=== PATIENT | female | born 1960 | race Caucasian/White ===

== ENCOUNTER → 2017-03-21 | Outpatient (CLI) | payer BC ==
--- NOTE | 2017-03-21 10:15 | US ---
EXAMINATION TYPE: US abdomen complete DATE OF EXAM: 03/21/2017 COMPARISON: NONE CLINICAL HISTORY: Upper abdominal pain R10.10. EXAM MEASUREMENTS: Liver Length: 17.1 cm Gallbladder Wall: 0.3 cm CBD: 0.5 cm Spleen: 8.9 cm Right Kidney: 9.4 x 4.6 x 5.6 cm Left Kidney: 9.4 x 4.4 x 5.1 cm Pancreas: Obscured by bowel gas Liver: Increased attenuation Gallbladder: No stones seen Evidence for sonographic Miller's sign: CBD: wnl Spleen: wnl Right Kidney: No hydronephrosis or masses seen Left Kidney: 4.8 x 4.0 x 4.3 cm cyst anterior aspect of left kidney Upper IVC: wnl Abd Aorta: wnl IMPRESSION: 1. Moderate fatty infiltration liver. Slight hepatomegaly. 2. Left renal cyst
== END | disposition home or self-care (01) ==
LOC: RADUSWWP 07:35
PROVIDERS: ATTEND Family Medicine
DX: N28.1 Cyst of kidney, acquired (principal); K76.0 Fatty (change of) liver, not elsewhere classified; R16.0 Hepatomegaly, not elsewhere classified
CPT/HCPCS: 76700

== ENCOUNTER → 2021-07-26 | Outpatient (CLI) | payer MEDICAID ==
--- NOTE | 2021-08-04 09:26 | MM ---
Reason for exam: screening (asymptomatic). Last mammogram was performed 3 years and 10 months ago. History: Patient is postmenopausal and is nulliparous. Family history of breast cancer in aunt at age 70. Physical Findings: A clinical breast exam by your physician is recommended on an annual basis and results should be correlated with mammographic findings. MG 3D Screening Mammo W/Cad Bilateral CC and MLO view(s) were taken. Prior study comparison: October 04, 2017, mammogram, performed at [facility]. December 27, 2015, mammogram, performed at [facility]. There are scattered fibroglandular densities. There is chronic nodularity bilaterally. ASSESSMENT: Incomplete: need additional imaging evaluation, BI-RAD 0 RECOMMENDATION: Special view mammogram of the right breast. If lesion persists on supplemental views, image directed ultrasound is recommended. [facility] will attempt to contact patient to return for supplemental views and ultrasound if indicated.
== END | disposition home or self-care (01) ==
LOC: RADMAMWWP 13:15
PROVIDERS: ATTEND Family Medicine
DX: Z12.31 Encounter for screening mammogram for malignant neoplasm of breast (principal); Z80.3 Family history of malignant neoplasm of breast; Z78.0 Asymptomatic menopausal state
CPT/HCPCS: 77063; 77067

== ENCOUNTER → 2021-08-08 | Outpatient (CLI) | payer MEDICAID ==
--- NOTE | 2021-08-08 09:08 | MM ---
Reason for exam: additional evaluation requested from abnormal screening. Last mammogram was performed less than 1 month ago. History: Patient is postmenopausal and is nulliparous. Family history of breast cancer in aunt at age 70. Physical Findings: Nurse did not find any significant physical abnormalities on exam. MG 3D Follow Up No Charge RT CC and MLO view(s) were taken of the right breast. Prior study comparison: October 04, 2017, mammogram, performed at [facility]. December 27, 2015, mammogram, performed at [facility]. There are scattered fibroglandular densities. There is chronic nodularity bilaterally. These results were verbally communicated with the patient and result sheet given to the patient on 08/08/21. ASSESSMENT: Benign, BI-RAD 2 RECOMMENDATION: Return to routine screening mammogram schedule for both breasts.
== END | disposition home or self-care (01) ==
LOC: RADMAMWWP 07:32
PROVIDERS: ATTEND Family Medicine
DX: Z53.9 Procedure and treatment not carried out, unspecified reason (principal)

== ENCOUNTER → 2023-09-04 | Outpatient (CLI) | payer MEDICAID ==
--- NOTE | 2023-09-05 08:42 | MM ---
Reason for Exam: Screening (asymptomatic). Last screening mammogram was performed 12 month(s) ago. Patient History: Menarche at age 11. Patient has no children. Postmenopausal. Maternal aunt had breast cancer, age 70. Risk Values: Mikki 5 year model risk: 1.7%. NCI Lifetime model risk: 7.4%. Prior Study Comparison: 07/26/2021 Bilateral Screening Mammogram, [facility]. 08/08/2021 Right Diagnostic Mammogram, [facility]. 09/01/2022 Bilateral MG screening mammo w CAD, [facility]. Tissue Density: There are scattered fibroglandular densities. Findings: Analyzed By CAD. There is no suspicious group of microcalcifications or new suspicious mass in either breast. Stable chronic nodularity. Overall Assessment: Benign, BI-RAD 2 Management: Screening Mammogram of both breasts in 1 year. . Patient should continue monthly self-breast exams. A clinical breast exam by your physician is recommended on an annual basis. This exam should not preclude additional follow-up of suspicious palpable abnormalities. Note on Mikki scores and lifetime risk: 1. A Mikki score greater than 3% is considered moderate risk. If this is the case, consider specialist referral to assess eligibility for a risk reducing agent. 2. If overall lifetime risk for the development of breast cancer is 20% or higher, the patient may qualify for future screening with alternating mammogram and breast MRI. Electronically signed and approved by: Ashkan Carpenter M.D. Radiologis
== END | disposition home or self-care (01) ==
LOC: RADMAMWWP 10:28
PROVIDERS: ATTEND Family Medicine
DX: Z12.31 Encounter for screening mammogram for malignant neoplasm of breast (principal); Z78.0 Asymptomatic menopausal state; Z80.3 Family history of malignant neoplasm of breast
CPT/HCPCS: 77063; 77067

== ENCOUNTER 2024-03-31 16:23 | Emergency (ER) | payer MEDICAID ==
[2024-03-31 16:33] VITALS: PULSE 80; RESP 18; TEMP 98.4
--- NOTE | 2024-03-31 17:02 | ED ---
Fall HPI - General Chief Complaint: Fall Stated Complaint: fall, L foot pain Time Seen by Provider: 03/31/24 16:36 Source: patient, EMS, RN notes reviewed Mode of arrival: EMS - History of Present Illness Initial Comments: 63-year-old female with reported history of "left foot drop "presents emergency department via EMS for chief complaint of fall and left foot pain. Patient st ates that she was at home attempting to use a commode where her foot gave way and she fell forward injuring her left foot. Patient denies hitting her head or loss conscious at time of the injury. Patient has pain over the medial left foot. Patient states that she is being evaluated outpatient for pain of the left foot over the past 6 months and there have been no formal diagnoses made. denies blood thinner use. no other acute complaints at this time. - Related Data Home Medications Medication Instructions Recorded Confirmed Omeprazole [PriLOSEC] 20 mg PO HS 07/14/14 07/20/14 Propranolol HCl [Inderal Xl] 80 mg PO HS 07/14/14 07/20/14 Allergies Allergy/AdvReac Type Severity Reaction Status Date / Time cephalexin monohydrate Allergy Dyspnea Verified 03/31/24 16:34 [From Keflex] Penicillins Allergy Dyspnea Verified 03/31/24 16:34 Sulfa (Sulfonamide Allergy Rash/Hives Verified 03/31/24 16:34 Antibiotics) Review of Systems ROS Statement: Those systems with pertinent positive or pertinent negative responses have been documented in the HPI. ROS Other: All systems not noted in ROS Statement are negative. Past Medical History Past Medical History: GERD/Reflux Additional Past Medical History / Comment(s): STATES HX OF TACHYCARDIA History of Any Multi-Drug Resistant Organisms: None Reported Additional Past Surgical History / Comment(s): SX TO REMOVE PILONIAL CYST, COLONOSCOPY Additional Past Anesthesia/Blood Transfusion Reaction / Comment(s): STATES DID NOT GO TO SLEEP WITH SPINAL BLOCK AND TWILIGHT SEDATION Past Psychological History: No Psychological Hx Reported Past Alcohol Use History: None Reported Past Drug Use History: None Reported General Exam Limitations: no limitations General appearance: alert, in no apparent distress Head exam: Present: atraumatic, normocephalic, normal inspection Neck exam: Present: normal inspection. Absent: tenderness, meningismus, lymphadenopathy Respiratory exam: Present: normal lung sounds bilaterally. Absent: respiratory distress, wheezes, rales, rhonchi, stridor Cardiovascular Exam: Present: regular rate, normal rhythm, normal heart sounds. Absent: systolic murmur, diastolic murmur, rubs, gallop, clicks GI/Abdominal exam: Present: soft, normal bowel sounds. Absent: distended, tenderness, guarding, rebound, rigid Left Foot/Toe exam: Present: normal inspection, tenderness (medial forefoot over first metatarsal). Absent: full ROM, swelling, abrasion, laceration, ecchymosis, deformity, crepitus Neurovascular tendon exam: Present: no vascular compromise, sensory deficit Gait: not tested/not observed Back exam: Present: normal inspection Neurological exam: Present: alert, oriented X3, CN II-XII intact Skin exam: Present: warm, dry, intact, normal color. Absent: rash Course Vital Signs 03/31/24 03/31/24 16:28 17:36 Temperature 98.4 F Pulse Rate 80 80 Respiratory 18 18 Rate Blood Pressure 134/76 134/80 O2 Sat by Pulse 97 97 Oximetry Medical Decision Making - Medical Decision Making Was pt. sent in by a medical professional or institution (, PA, BALLOON DESIGN PRINTER, urgent care, hospital, or long-term...) When possible be specific @ -No Did you speak to anyone other than the patient for history (EMS, parent, family, police, friend...)? What history was obtained from this source @ -To the patient's at bedside who states that the patient is being evaluated by multiple specialist outpatient for ongoing pain and difficulties with ambulation of the left foot. Did you review nursing and triage notes (agree or disagree)? Why? @ -I reviewed and agree with nursing and triage notes Were old charts reviewed (outside hosp., previous admission, EMS record, old EKG, old radiological studies, urgent care reports/EKG's, long-term records)? Report findings @ -No old charts were reviewed Differential Diagnosis (chest pain, altered mental status, abdominal pain women, abdominal pain men, vaginal bleeding, weakness, fever, dyspnea, syncope, headache, dizziness, GI bleed, back pain, seizure, CVA, palpatations, mental health, musculoskeletal)? @ -Differential Musculoskeletal Muscular strain, contusion, ligament sprain, fracture, arthritis, septic arthritis, bursitis, cellulitis, muscle spasm, nerve compression, DVT, arterial occlusion, herpes zoster, electrolyte abnormality, tumor.... This is not meant to be in all inclusive list EKG interpreted by me (3pts min.). @ -None X-rays interpreted by me (1pt min.). @ -X-ray of the left foot reveals consideration for an occult fracture at the base of the fifth metatarsal XR of the left ankle no fractures evident, costochondritis CT interpreted by me (1pt min.). @ -None done U/S interpreted by me (1pt. min.). @ -None done What testing was considered but not performed or refused? (CT, X-rays, U/S, labs)? Why? @ -None What meds were considered but not given or refused? Why? @ -None Did you discuss the management of the patient with other professionals (professionals i.e. , PA, BALLOON DESIGN PRINTER, lab, RT, psych nurse, social science analyst, business segment manager, teacher, information assurance officer, briefcase sewer)? Give summary @ -No Was smoking cessation discussed for >3mins.? @ -No Was critical care preformed (if so, how long)? @ -No Were there social determinants of health that impacted care today? How? (Homelessness, low income, unemployed, alcoholism, drug addiction, transportation, low edu. Level, literacy, decrease access to med. care, assisted, rehab)? @ -No Was there de-escalation of care discussed even if they declined (Discuss DNR or withdrawal of care, Hospice)? DNR status @ -No What co-morbidities impacted this encounter? (DM, HTN, Smoking, COPD, CAD, Cancer, CVA, ARF, Chemo, Hep., AIDS, mental health diagnosis, sleep apnea, morbid obesity)? @ -None Was patient admitted / discharged? Hospital course, mention meds given and route, prescriptions, significant lab abnormalities, going to OR and other pertinent info. @ -Discharged. 63-year-old female left foot pain. Patient is noted to have pain over the anterior medial first metatarsal, no obvious deformities and patient neurovascular intact. X-ray of the left foot possible for occult fracture of the base of the fifth metatarsal. On physical examination patient has no pain over the fifth metatarsal therefore there is minimal clinical concern for fracture. X-ray of the left ankle negative for acute process. Recommend that patient continue Tylenol Motrin at home and follow-up outpatient with her primary care provider for further evaluation of ongoing left foot pain. All questions answered at bedside and strict return parameters vero with the patient she is verbalized understanding. Case discussed with Dr. Canela Undiagnosed new problem with uncertain prognosis? @ -No Drug Therapy requiring intensive monitoring for toxicity (Heparin, Nitro, Insuli n, Cardizem)? @ -No Were any procedures done? @ -No Diagnosis/symptom? @ -left foot pain Acute, or Chronic, or Acute on Chronic? @ -Acute Uncomplicated (without systemic symptoms) or Complicated (systemic symptoms)? @ -uncomplicated Side effects of treatment? @ -No Exacerbation, Progression, or Severe Exacerbation? @ -No Poses a threat to life or bodily function? How? (Chest pain, [place], [place], pneumonia, PE, COPD, DKA, ARF, appy, cholecystitis, CVA, Diverticulitis, Homicidal, Suicidal, threat to staff... and all critical care pts) @ -No Disposition Clinical Impression: Left foot pain Disposition: HOME SELF-CARE Condition: Good Instructions (If sedation given, give patient instructions): Foot Sprain (ED) Additional Instructions: Return to emergency department for any new or worsening symptoms. Is patient prescribed a controlled substance at d/c from ED?: No Referrals: Tory Rojas DO [Primary Care Provider] - 1-2 days Time of Disposition: 17:31
--- NOTE | 2024-03-31 17:17 | XR ---
EXAMINATION TYPE: XR ankle complete LT DATE OF EXAM: 03/31/2024 COMPARISON: None HISTORY: Fall pain injury TECHNIQUE: 3 view left ankle FINDINGS: No acute fracture or dislocation evident. The ankle mortise is intact. Note is made of a sc lerotic area along the medial talar junction compatible with osteochondritis dissecans. This appears nondisplaced. Plantar calcaneal heel spur is present. Mild soft tissue swelling may be present at the ankle. IMPRESSION: 1. Osteochondritis dissecans medial talus. 2. No displaced fractures evident. [facility], , 03/31/2024 5:14 PM
--- NOTE | 2024-03-31 17:21 | XR ---
EXAMINATION TYPE: XR foot complete LT DATE OF EXAM: 03/31/2024 COMPARISON: None HISTORY: Fall, pain TECHNIQUE: 3 view left foot FINDINGS: No displaced fractures evident. Joint spaces are preserved. However, there is osteopenia at the joint spaces within the mid foot and distal foot as well as the metatarsophalangeal joint spaces proximal and distal interphalangeal joint spaces. Plantar calcaneal heel spur is present. Mild soft tissue swelling is over the dorsum of the foot. On the oblique view there is subtle lucency within the base of the fifth metatarsal. Correlate for pa in. A displaced fracture at this level is not identified. Follow-up can be performed. There may be so me limitation on evaluation for an occult fracture due to the osteopenia and the joint spaces. IMPRESSION: 1. Clinical consideration for an occult fracture of the base of the fifth metatarsal. Follow-up brian mmended. 2. Osteopenia at the joint spaces compatible with degenerative change. [facility], , 03/31/2024 5:19 PM
[2024-03-31 17:37] VITALS: BP 134/80
== END 2024-03-31 18:44 | disposition home or self-care (01) ==
LOC: EC 16:23
CPT/HCPCS: 99283